=== PATIENT | male | born 1985 | race Caucasian/White ===

== ENCOUNTER 2023-03-17 08:26 | Emergency (ER) | payer MEDICAID ==
[~2023-03-17] VITALS: Ht 182.9 cm; Wt 78.5 kg
[2023-03-17 08:39] VITALS: BP 155/136; PULSE 143; RESP 18; TEMP 98.7; O2SAT 100
[2023-03-17] MEDS ORDERED: IBUP-1456 PO (09:14)
== END 2023-03-17 09:23 | disposition home or self-care (01) ==
LOC: ER 08:26
DX: S83.91XA Sprain of unspecified site of right knee, initial encounter (principal); V29.99XA Rider (driver) (passenger) of other motorcycle injured in unspecified traffic accident, initial encounter; Y93.55 Activity, bike riding; Y92.89 Other specified places as the place of occurrence of the external cause; Y99.8 Other external cause status
CPT/HCPCS: 73562